=== PATIENT | male | born 1985 | race Caucasian/White ===

== ENCOUNTER 2025-03-23 14:12 | Emergency (ER) | payer OTHER ==
[2025-03-23 14:26] VITALS: BP 111/81; PULSE 78
== END 2025-03-23 15:19 | disposition home or self-care (01) ==
LOC: LL.ED 14:12
DX: S67.01XA Crushing injury of right thumb, initial encounter (principal); S62.524A Nondisplaced fracture of distal phalanx of right thumb, initial encounter for closed fracture; W23.0XXA Caught, crushed, jammed, or pinched between moving objects, initial encounter
CPT/HCPCS: 73130-RT; 99283; A9270-GY